=== PATIENT | female | born 1970 | race Caucasian/White ===

== ENCOUNTER 2025-06-26 17:47 | Emergency (ER) | payer BC, SELFPAY ==
[2025-06-26 17:50] VITALS: BP 192/77; PULSE 64; RESP 16; TEMP 36.3; O2SAT 98; BMI 35.5
--- NOTE | 2025-06-26 18:03 | DI.RAD.S_ITS ---
PROCEDURE: XR HUMERUS LT 2V INDICATIONS: fall, pain TECHNIQUE: 2 views of the humerus were acquired. COMPARISON: None. FINDINGS: Bones: Comminuted proximal humeral fracture Soft tissues: No suspicious soft tissue calcifications. No radiopaque foreign body IMPRESSION: Comminuted proximal humeral fracture Approved by: Miguelito Salas M.D. on 06/26/2025 at 17:37
--- NOTE | 2025-06-26 20:58 | ED_ITS ---
HPI - Extremity Injury (Upper) General Chief Complaint: Extremity Injury, Upper Stated Complaint: injury left arm Time Seen by Provider: 06/26/25 20:57 Source: patient Mode of arrival: Ambulatory History of Present Illness HPI narrative: 54-year-old female tripped on lower zipper portion of attempt while exiting tent camping at [facility], fell onto left shoulder, with pain to that area this evening. No other injuries. Hurts with any movement to the left shoulder. No prior left shoulder injuries or surgical interventions. Visiting from home area [facility]. Related Data Previous Rx's ?Medication ?Instructions ?Recorded oxycodone-acetaminophen 5 mg-325 1 tab PO Q6H PRN pain #14 tabs 06/26/25 mg tablet Allergies Allergy/AdvReac Type Severity Reaction Status Date / Time adhesive Allergy Rash Verified 06/26/25 17:54 hydrocodone Allergy Agitated Verified 06/26/25 17:54 hydromorphone (From Dilaudid) Allergy Verified 06/26/25 17:54 codeine AdvReac Nausea Verified 06/26/25 17:54 Patient History Social History Smoking Status: Never smoker Smoking Status: Never smoker Exam Narrative Exam Narrative: GENERAL: Well-developed patient, in mild distress. HEAD: Atraumatic. Normocephalic. EYES: Pupils equal round and reactive. Extraocular motions intact. No scleral icterus. No injection or drainage. ENT: Nose without bleeding, purulent drainage. Throat without erythema, tonsillar hypertrophy or exudate. Airway patent. NECK: Trachea midline. Non tender CARDIOVASCULAR: Regular rate and rhythm without murmurs, gallops, or rubs. RESPIRATORY: Clear to auscultation. Breath sounds equal bilaterally. No wheezes, rales, or rhonchi. GASTROINTESTINAL: Abdomen soft, non-tender, nondistended. EXTREMITIES: No edema or joint tenderness. BACK: Nontender without deformity or crepitance. No flank tenderness. NEURO: AOx3. Motor functions grossly nonfocal. SKIN: No rash or erythema of visible areas Initial Vital Signs Initial Vital Signs: Vital Signs Temperature 97.4 F L 06/26/25 17:50 Pulse Rate 64 06/26/25 17:50 Respiratory Rate 16 06/26/25 17:50 Blood Pressure 192/77 H 06/26/25 17:50 Pulse Oximetry 98 06/26/25 17:50 Oxygen Delivery Method Room Air 06/26/25 17:50 Course Orders Ordered: ED Orders 06/26/25 22:23 CT UE LT wo con Stat Discontinued Medications Ibuprofen (Ibuprofen 400 Mg Tablet) 800 mg PO NOW ONE Stop: 06/26/25 20:48 Last Admin: 06/26/25 21:01 Dose: 800 mg Documented By: Ondansetron HCl (Ondansetron 4 Mg Odt Prepack) 1 bottle MISC DIRECTED ONE Stop: 06/26/25 22:48 Last Admin: 06/26/25 22:56 Dose: 1 bottle Documented By: DOV Oxycodone/Acetaminophen (Oxycodone/Acetaminophen 5/325 Tablet) 1 tab PO NOW ONE Stop: 06/26/25 22:19 Last Admin: 06/26/25 22:56 Dose: 1 tab Documented By: DOV Oxycodone/Acetaminophen (Oxycodone/Apap 5/325 Prepack) 1 bottle MISC DIRECTED ONE Stop: 06/26/25 22:19 Last Admin: 06/26/25 22:56 Dose: 1 bottle Documented By: DOV Vital Signs Vital signs: Vital Signs - 8 hr 06/26/25 23:31 Pulse Rate 75 Respiratory Rate 16 Blood Pressure 158/90 H Pulse Oximetry 97 Oxygen Delivery Method Room Air MDM - Extremity Injury (Upper) Imaging Data Extremity x-ray #1: Radiologist's Impression: [address] [address] XRay Report Signed Patient: Hermila Campuzano MR#: [id number] : 1970 Acct:[id number] Age/Sex: 54 / F Date of Service: 06/26/25 Loc: ED Accession Number: [id number] Procedure: XR humerus LT 2V Ordering Provider: Radha Bourgeois MD PROCEDURE: XR HUMERUS LT 2V INDICATIONS: fall, pain TECHNIQUE: 2 views of the humerus were acquired. COMPARISON: None. FINDINGS: Bones: Comminuted proximal humeral fracture Soft tissues: No suspicious soft tissue calcifications. No radiopaque foreign body IMPRESSION: Comminuted proximal humeral fracture Approved by: Miguelito Salas M.D. on 06/26/2025 at 17:37 CT left shoulder noncontrast: Radiologist's Impression: [address] [address] [address] Scan Report Signed Patient: Hermila Campuzano MR#: [id number] : 1970 Acct:[id number] Age/Sex: 54 / F Date of Service: 06/26/25 Loc: ED Accession Number: [id number] Procedure: CT UE LT wo con Ordering Provider: Oscar Mike MD PROCEDURE: CT UE LT WO CON INDICATIONS: L shoulder CT ([facility] request) TECHNIQUE: Noncontrast 1 mm thick sections acquired from the acromioclavicular joint to the inferior scapula, with coronal and sagittal reformatting. COMPARISON: [facility], CR, XR HUMERUS LT 2V, 06/26/2025, 18:05. FINDINGS: Image quality: Excellent. Bones: There is a comminuted fracture seen involving the left humeral neck, with impaction of the fracture fragments. Mild comminution can be seen. No glenohumeral dislocation can be seen. No fractures are seen involving the clavicle or the scapula. The visualized ribs appear intact. Soft tissues: Generalized soft tissue swelling can be seen. No significant abnormality can be seen of the left lung or the visualized mediastinum. No enlarged axillary lymph nodes are seen. IMPRESSION: Impacted fracture of the humeral neck, with mild comminution. Dictated by: Mehul Carrillo M.D. on 06/26/2025 at 22:02 Approved by: Mehul Carrillo M.D. on 06/26/2025 at 22:04 [facility] Narrative Medical decision making narrative: 54-year-old female had ground level fall onto [place] shoulder [place] tripping on exit from her camping tent. No gross deformity but some tenderness to the left anterior lateral shoulder. No tenderness along the clavicle. Screening x-ray sent. X-ray left shoulder shows suspected comminuted fracture left humeral neck. See radiology report. Case discussed with local orthopedic surgeon Dr. eNwton, aware follow up would be out of town, advised CT imaging to further delineate the comminution. Patient agreeable. CT left shoulder showed comminution with a few fragments, some impaction changes. See radiology report. Copy of x-rays and CT scan onto disc for patient to bring to home [facility], to coordinate follow up Orthopedic surgery in her home region. Continue chronic medications. Recheck early next week with the regular provider to coordinate orthopedic follow up. Return precautions discussed. Home with family. Discharge Plan Departure Patient Disposition: Home Clinical Impression: Fracture of neck of left humerus Activity Restrictions/Additional Instructions: Fall from tripping over door way exiting camping tent earlier today, left shoulder pain. X-ray shows comminuted appearing humeral neck fracture, no gross dislocation. Orthopedic surgery Dr. Judy Newton was consulted who advised to CT scanning for further an anatomic delineation. You will be following up in your home would not [facility] area. Copies of x-rays and CT scans saved onto disc [employer] th copies of reports. Oxycodone/acetaminophen pain medication given, home pack, prescription sent to your pharmacy. Wear shoulder sling for now. See your regular doctor Saturday or Saturday to arrange close follow up with area Orthopedic surgery. Return to this/nearest emergency department for any change worsening symptoms or any concerns prior. Prescriptions: New oxycodone-acetaminophen 5-325 mg tablet 1 tab PO Q6H PRN (Reason: pain) Qty: 14 0RF Stand Alone Forms: Patient Portal/API
[2025-06-26] MEDS: IBUPROFEN 400 MG TABLET 800 MG PO (21:01)
--- NOTE | 2025-06-26 22:23 | DI.CT.S_ITS ---
PROCEDURE: CT UE LT WO CON INDICATIONS: L shoulder CT ([facility] request) TECHNIQUE: Noncontrast 1 mm thick sections acquired from the acromioclavicular joint to the inferior scapula, with coronal and sagittal reformatting. COMPARISON: [facility], CR, XR HUMERUS LT 2V, 06/26/2025, 18:05. FINDINGS: Image quality: Excellent. Bones: There is a comminuted fracture seen involving the left humeral neck, with impaction of the fracture fragments. Mild comminution can be seen. No glenohumeral dislocation can be seen. No fractures are seen involving the clavicle or the scapula. The visualized ribs appear intact. Soft tissues: Generalized soft tissue swelling can be seen. No significant abnormality can be seen of the left lung or the visualized mediastinum. No enlarged axillary lymph nodes are seen. IMPRESSION: Impacted fracture of the humeral neck, with mild comminution. Dictated by: Mehul Carrillo M.D. on 06/26/2025 at 22:02 Approved by: Mehul Carrillo M.D. on 06/26/2025 at 22:04
[2025-06-26] MEDS: OXYCODONE/ACETAMINOPHEN 5/325 TABLET 1 TAB PO (22:56)
[2025-06-26] MEDS: ONDANSETRON 4 MG ODT PREPACK 1 BOTTLE MISC (22:56)
[2025-06-26] MEDS: OXYCODONE/APAP 5/325 PREPACK 1 BOTTLE MISC (22:56)
[2025-06-26 23:31] VITALS: BP 158/90; PULSE 75; RESP 16; O2SAT 97
== END 2025-06-26 23:32 | disposition home or self-care (01) ==
PROVIDERS: Emergency Provider Emergency Medicine
DX: S42.212A Unspecified displaced fracture of surgical neck of left humerus, initial encounter for closed fracture (principal); W18.30XA Fall on same level, unspecified, initial encounter
CPT/HCPCS: 73060; 73200; 99283; 99284